=== PATIENT | male | born 1935 | race Caucasian/White ===

== ENCOUNTER 2022-02-14 13:28 | Inpatient (IN) | payer OTHER, MEDICARE, BC ==
[~2022-02-14] VITALS: Ht 177.8 cm; Wt 88.4 kg
[~2022-02-14 13:28] MED LIST: ALFUZOSIN HCL10 MG PO; ATENOLOL50 MG PO; FELODIPINE ER10 MG PO; LEVOTHYROXINE88 MCG PO; LOSARTAN-HCTZ1 EACH PO; METFORMIN HCL500 MG PO; SALSALATE750 MG PO; WARFARIN SODIUM5 MG PO; WELCHOL625 MG PO
[2022-02-14] MEDS ORDERED: ELIQUIS5 MG PO (13:59)
[2022-02-14] MEDS ORDERED: NITROGLYCERIN0.4 MG SL (14:00)
[2022-02-14] MEDS ORDERED: CARVEDILOL25 MG PO (14:00)
[2022-02-14] MEDS ORDERED: PRAVASTATIN SOD40 MG PO (14:01)
[2022-02-14] MEDS ORDERED: SPIRONOLACTONE25 MG PO (14:01)
[2022-02-14] MEDS ORDERED: OMEPRAZOLE20 MG PO (14:02)
[2022-02-14] MEDS ORDERED: LOW DOSE ASPIRI81 MG PO (14:04)
--- NOTE | 2022-02-14 19:16 | NUR ---
New admit to the medical floor from ED dept. Patient arrived alert and oriented x4. Patient reports mild sob at rest. Patient is on 4L oxygen per nc, sp02 is 94% at this time, respirations 26/min. Patient tolerated dinner well. at bedside with patient. Tele intact per provider order. Report provided to LUDMILA Hdz.
--- NOTE | 2022-02-14 19:30 | NUR ---
REPORT TAKEN ON PT. IS AT BEDSIDE. PT IS PLEASANT AND COOPERATIVE. CALL LIGHT IS AT BEDSIDE. NOO CURRENT NEEDS.
--- NOTE | 2022-02-14 20:14 | EKG ---
[facility] [address] [facility] [place], [place] [address] Signed Ventricular-paced rhythm Abnormal ECG No previous ECGs available Confirmed by LIT THOMAS MD ([id number]) on 02/14/2022 8:14:19 PM Electronically Signed By: LIT THOMAS MD 02/14/222013 PATIENT NAME: SWAPNA FOFANA Electrocardiogram DATE OF : 37 PHYSICIAN: LIT THOMAS MD REPORT #: [id number] REPORT IS CONFIDENTIAL AND NOT TO BE RELEASED WITHOUT AUTHORIZATION
--- NOTE | 2022-02-14 22:03 | NUR ---
PPT IS CONFUSED TO PLACE, TIME, SITUATION. HE HAS REMOVED HIS TELE LEADS AND GOWN AND IS ATTEMPTING TO GET UT OF BED. REORIENTED PT . CALL LIGHT IN REACH. BEDALARM IS ON.
--- NOTE | 2022-02-14 22:30 | NUR ---
IN TO CHECK TELE LEAD
--- NOTE | 2022-02-15 00:15 | NUR ---
ASSISTED PT WITH URINAL A COUPLE OF TIMES AFTER BED ALARM BEING SET OFF, BED ALARM RESUMED EACH TIME
--- NOTE | 2022-02-15 01:30 | NUR ---
2AM VS DONE, PT RESTING WITH BED ALARM SET
--- NOTE | 2022-02-15 04:15 | NUR ---
BED ALARM SET OFF, PT UP TO VOID, BACK TO BED, VSS, NO FURTHER NEEDS AT THIS TIME, BED ALARM RESUMED
--- NOTE | 2022-02-15 05:39 | NUR ---
bed alarm going off, PT up sba to void via urinal. PT back to bed, and bed alarm resumed. call light in reach and warm blanket provided.
--- NOTE | 2022-02-15 07:34 | NUR ---
Patient in bed resting, eyes closed, respirations non labored. Patient remains on 4L oxygen per nc. Patient has no distress. Personal supplies and call light within reach.
[2022-02-15] MEDS ORDERED: LOSARTAN POTAS100 MG PO (09:41)
--- NOTE | 2022-02-15 09:58 | NUR ---
Patient titrated from 4L oxygen to 1L at this time, sp02 94% at this time. Will continue to monitor sp02. Patient has no notable distress at this time. Personal supplies and call light within reach.
[2022-02-15] MEDS ORDERED: TYLENOL325 MG PO (10:49)
--- NOTE | 2022-02-15 11:09 | NUR ---
PT ALERT, ORIENTED AND SITTING UP IN BED WITH TV ON. PT EXPRESSIVE RREGARDING HOW HE FEELS. HAD PLEASANT VISIT, GAVE BLESSING. WILL FOLLOW
--- NOTE | 2022-02-15 11:41 | NUR ---
DR. THOMAS AT THE BEDSIDE SPEAKING WITH PATIENT. DISCUSSED THAT PATIENT AND MD FEEL THAT DISCHARGE TO [facility] WOULD BE A GOOD OPTION. PATIENT STATES HE WOULD LIKE TO DISCUSS IT WITH HIS SON THIS EVENING. WILL CHECK BACK WITH PATIENT TO DETERMINE DISCHARGE PLAN.
--- NOTE | 2022-02-15 14:24 | NUR ---
Patient sitting up in chair visiting with , no distress. Patient denies pain at this time. Pt remains on 1L oxygen per nc, respirations non labored. Patient reports mild shortness of breath at rest. IV site patent. No needs, personal supplies and call light within reach.
--- NOTE | 2022-02-15 19:30 | NUR ---
REPORT TAKEN ON PT. HE IS UP IN HIS CHAIR WATCHING TV. CALL LIGHT IN REACH. CHAIR ALARM IS ON.
--- NOTE | 2022-02-15 20:53 | NUR ---
ASSISTED PT. WITH URINAL. WARM BLANKET PROVIDED. ROOM TIDIED. CALL LIGHT LEFT WITHIN REACH. CHAIR ALARM SET. NO OTHER IMMEDIATE NEEDS AT THIS TIME.
--- NOTE | 2022-02-15 22:21 | NUR ---
PT. CHAIR ALARM SOUNDED. ASSISTED PT. FROM CHAIR TO BED. FRESH ICE WATER PROVIDED. BED ALARM SET. CALL LIGHT LEFT WITHIN REACH. NO OTHER IMMEDIATE NEEDS AT THIS TIME.
--- NOTE | 2022-02-15 23:57 | NUR ---
PT SET OFF BED ALARM GETTING UP TO GO TO THE BATHROOM. ASSISTED PT TO USE URINAL AT BEDSIDE. BACK TO BED. BED ALARM ON.CALL LLIGHT IN REACH.
--- NOTE | 2022-02-16 00:19 | NUR ---
PT HAS BEEN AWAKE AND TRYING TO GET OUT OF BED TO GET DRESED FOR THE DAY. PT IS REORIENTED TO PLACE AND TIME , ENCOURAGED TO GO TO SLEEP. TV TURNED OFF. BED ALARM ON, CALL LIGHT IN REACH.
--- NOTE | 2022-02-16 01:42 | NUR ---
PT SET OFF BED ALARM GETTING OUT OF BED TO VOID WITHOUT CALING. HE WAS ASSISTED TO STAND AT BEDSIDE TO USE URINAL. ASSISTED BACK TO BED. BED ALARM ON, CALL LIGHT IN REACH.
--- NOTE | 2022-02-16 02:08 | NUR ---
PT DISORIENTED TO PLACE, TIME AND SITUATION. REORIENTED AND ASSISTED BACK TO BED.
--- NOTE | 2022-02-16 06:48 | NUR ---
PT SET OFF BED ALARM GETTING OUT OF BED TO VOID. HE WAS ASSISTED WITH HIS URINAL . HE THEN WENT BACK TO BED WITH A WARMED BLANKETFOR COMFORT. CALL LIGHT IN REACH. BED ALARM ON.
--- NOTE | 2022-02-16 06:49 | NUR ---
PT SLEPT OFF AND ON. HE WAS DISORIENTED TO PLACE TIME AND SITUATION. BED ALARM WAS ON, PT DID NOT REMEMBER TO USE HIS CALLL LIGHT AND SET OFF THE BED ALARM MULTIPLE TIMES. PT IS REQUIRING OXYGEN AT 2 L PER NC TO MAINTAIN SATS. VSS, AFFEBRILE.
--- NOTE | 2022-02-16 07:50 | NUR ---
Bedside report received from CLAYTON RN. Pt is awake, sitting in a recliner, ready for breakfast. NO concerns voiced at this time.
--- NOTE | 2022-02-16 09:11 | NUR ---
Pt is napping in the recliner. Both feet elevated. O2 at 2 L. No signs of distress.
--- NOTE | 2022-02-16 13:00 | NUR ---
Dr Mitchell ordered PT/OT to evaluate Pt. Pt is chronically deconditioned, so as long as he can move around at his baseline he'd be able to discharge home. PT/OT eval pending. Pt had one loose BM.
--- NOTE | 2022-02-16 13:50 | NUR ---
Pt's came by. She was concerned about Marlon needing O2 at home. They are about to move to [place] by car. He'd need oxygen concentrator, not a regular O2 tank. Above was relayed to Dr Mitchell. Plan is to wait till Friday so it can be all arrranged.
--- NOTE | 2022-02-16 15:51 | NUR ---
PT in to evaluate the Pt.
--- NOTE | 2022-02-16 17:30 | NUR ---
Pt ate 50% of his dinner. He is resting in the recliner, watching TV. He still feels tired and wiped out.
--- NOTE | 2022-02-16 19:27 | NUR ---
SHIFT REPORT FROM INGRIS FERNÁNDEZ RN, PT HAD GOOD DAY CAN BE FORGETFUL, BED ALARM FOR SAFETY, ONE PERSON ASSIST, HAD BM TODAY. WILL NEED CASE MANAGEMENT ON FRIDAY FOR OXYGEN ORDERS AND PLAN FOR TRAVEL [place]CROSS COUNTRY. NO NEW CONCERNS OVER DAYSHIFT.
--- NOTE | 2022-02-16 20:08 | NUR ---
PT SITTING UP IN RECLINER ALERT, PT'S SPOUSE SITTING ON COUCH NO COMPLAINTS, OR CONCERNS AT THIS TIME
--- NOTE | 2022-02-16 21:45 | NUR ---
PT ASSISTED TO TRANSFER TO BED STANDBY ASSIST WITH CANE, PT TOLERATED WELL STEADY GAIT. BED ALARM ON FOR PT SAFETY. PT HAS NO REQUESTS OR CONCERNS AT THIS TIME
--- NOTE | 2022-02-17 00:05 | NUR ---
PT RESTING QUIETLY IN BED EYES CLOSED RR 19 BPM, NO DISTRESS NOTED, N.C IN PLACE, CALL LIGHT IN REACH, BED ALARM ON FOR PT SAFETY.
--- NOTE | 2022-02-17 03:53 | NUR ---
PT UP TO BEDSIDE TO VOID IN URINAL, NO OTHER CONCERNS, BACK TO BED, CALL LIGHT IN REACH, BED ALARM ON FOR PT SAFETY.
--- NOTE | 2022-02-17 04:01 | NUR ---
PT HAS SLEPT WELL OVER SHIFT, BED ALARM ON FOR PT SAFETY, HE HAS SET OFF TWICE WHEN ATTEMPTING TO GET OUT OF BED TO VOID, STANDBY ASSIST TO BEDSIDE TO COID IN URINAL, HE IS FORGETFUL, EASILY REORIENTED. NO NEW CONCERNS THIS SHIFT. URINE OUT IS Q.S. PLUS. COOPERATIVE WITH CARE PLAN
--- NOTE | 2022-02-17 06:04 | NUR ---
PT UP TO BEDSIDE TO VOID IN URINAL WITH ASSISTANCE FROM COMPRESSION MOLDING MACHINE OPERATOR ERICA.
--- NOTE | 2022-02-17 07:14 | NUR ---
Bedside report received from CLAYTON RN. Pt is sleeping on his R side. O2 at 2L. Pt had one episode at night when he pulled O2 off in his sleep. pOx was 76% on RA at that time.
--- NOTE | 2022-02-17 08:44 | NUR ---
PATIENT UP TO CHAIR WITH SBA AND CANE. CHAIR ALARM IS ON. URINAL PROVIDED, CALL LIGHT WITHIN REACH.
--- NOTE | 2022-02-17 10:01 | NUR ---
Pt is working with PT. He is walking in the hallways with hemiwalker and O2.
--- NOTE | 2022-02-17 11:44 | NUR ---
Pt is sitting in the recliner. 3L of O2 via NC. Call light and water withing reach.
--- NOTE | 2022-02-17 14:05 | NUR ---
Pt is sitting up in the recliner. He was upset he was just sitting there and 'doing nothing". Pt was offered a walk in the hallways or watching TV. He declined both. He said he was feeling dizzy. Fresh water was provided. O2 at 2 L. Call light within reach. Chair alarm on.
--- NOTE | 2022-02-17 15:58 | NUR ---
Rocephin administered. Pt is sitting in the recliner. No concerns/request at this time. Feels less dizzy. Water and call light handy.
--- NOTE | 2022-02-17 19:15 | NUR ---
REPORT RECEIVED FROM OFFGOING RNINGRIS. PT SITTING UP IN CHAIR WITH AT BEDSIDE. CALL LIGHT IN REACH. CHAIR ALARM ACTIVE.
--- NOTE | 2022-02-17 19:57 | NUR ---
PT ASSESSMENT COMPLETE. PT UP TO BATHROOM WITH 1 PA AND CANE. TOLERATED WELL. PT UP TO CHAIR, VISITING WITH . CHAIR ALARM IN PLACE. SAO2 80% ON 2 LPM AFTER RETURNING FROM BATHROOM. O2 INCREASED TO 3LPM. SAO2 INCREASED TO 90%. LUNGS WITH CRACKLES TO BILATERAL LOWER LOBES. COARSE TO BILATERAL UPPER LOBES. NO COUGH NOTED DURING ASSESSMENT. PT FORGETFUL, DISORIENTED TO DATE AND TIME. 1+ EDEMA TO LLE. CHRONIC PER PTS . IV FLUSEHD WITH 10ML NS. WNL. SL. PT DENIES FURTHER NEEDS AT THIS TIME. CALL LIGHT IN REACH.
--- NOTE | 2022-02-17 22:30 | NUR ---
CHAIR ALARMING. SBA. PATIENT USED THE BATHROOM. VOIDED UNMEASURED. PATIENT IS LAYING IN BED NOW. WARM BLANKET PROVIDED. BED ALARM ON FOR SAFETY. DENIES ANY NEEDS AT THIS TIME.
--- NOTE | 2022-02-17 22:45 | NUR ---
PT ROUNDING. PT RESTING IN BED WITH LIGHT ON. WATCHING TV. TURNED LIGHTS OUT FOR PT. EYE GLASSES PLACED ON BEDSIDE TABLE. PT DENIES FURTHER NEEDS. CALL LIGHT IN REACH. BED ALARM ACTIVE.
--- NOTE | 2022-02-18 01:59 | NUR ---
PT ASSESSMENT COMPLETE. DURING PT ROUNDING, PT FOUND SITTING UP IN BED. STATES THAT HE HAS WET THE BED, HOWEVER BED AND UNDERWEAR ARE DRY. PT NOTED TO HAVE O2 OFF AT THIS TIME. SPOT CHECK SAO2 84%. O2 REPLACED AT 2 LPM, SAO2 INCREASES TO 91%. PT UP TO BATHROOM AND BACK TO BED WITH 1 PA AND CANE. LUNG SOUNDS WITH CRACKLES TO BILATERAL BASES. NO COUGH NOTED DURING ASSESSMENT. PT DENIES FURTHER NEEDS AT THIS TIME. CALL LIGHT IN REACH.
--- NOTE | 2022-02-18 03:02 | NUR ---
RECEIVING INSPECTOR TO ROOM FOR BED ALARM SOUNDING. PT STATES HE NEEDS TO SIT UP. O2 IN PLACE APPROPRIATELY @ 2LPM. NO ACCESSORY MUSCLE USE NOTED. NO INCREASE IN RR. SPOT SAO2 CHECK 78%, O2 INCREASED TO 3 LPM, SAO2 DECREASES TO 73%. O2 INCREASED TO 4 LPM, SAO2 INCREASED TO 91%. BEDSIDE CPOX PLACED ON PT. PT STATES HE FEELS BETTER. RESTING BACK IN BED WITH HOB ELEVATED AND PILLOW BEHIND BACK. BED ALARM ACTIVE. CALL LIGHT IN REACH. ROOM IN VIEW OF RN STATION WITH CURTAIN OPEN.
--- NOTE | 2022-02-18 05:06 | NUR ---
PT UP TO BEDSIDE TO USE URINAL WITH 1 PA AND BACK TO BED. PT TOLERATED WELL. PT DESATS TO 84% ON 4 LPM WHILE UP, RECOVERED TO 91% ONCE BACK INTO BED. PT DENIES FURTHER NEEDS. CALL LIGHT IN REACH. BED ALARM ACTIVE. ROOM IN VIEW OF RN STATION WITH CURTAIN OPEN.
--- NOTE | 2022-02-18 06:50 | NUR ---
PATIENT GOT UP TO USE THE BATHROOM. SBA. USING CANE. PATIENT VOIDED 500ML. PATIENT IS BACK IN BED. COFFEE PROVIDED. BED ALARM ON FOR SAFETY.
--- NOTE | 2022-02-18 07:05 | NUR ---
BEDSIDE HANDOFF REPORT RECEIVED FROM NURSING SCHEDULER RN. PT RESTING IN BED. ON 3L NC. PT DENIES NEEDS AT THIS TIME.
--- NOTE | 2022-02-18 08:38 | NUR ---
PT SITTING IN CHAIR. PT PLEASANTLY CONFUSED, ORIENTED TO SELF ONLY. PT ON 3L NC, LUNG SOUNDS COARSE WITH FINE CRACKLES IN LOWER LOBES. PT DENIES PAIN. IV SLAINE LOCKED, FLUSHED AND PATENT. BOWEL TONES ACTIVE, DENIES NAUSEA, AWAITING BREAKFAST. CMS INTACT, WITHOUT EDEMA. MORNING MEDICATIONS ADMINISTERED PER EMAR. PT DENIES OTHER NEEDS AT THIS TIME. CHAIR ALARM IN PLACE.
--- NOTE | 2022-02-18 10:01 | NUR ---
PATIENT SITTING UP IN CHAIR WATCHING TV. VITALS AND I&O'S CHARTED. LINENS CHANGED. CALL LIGHT IN REACH. NO FURTHER NEEDS AT THIS TIME. CHAIR ALARM ON.
--- NOTE | 2022-02-18 12:48 | NUR ---
PT ALERT, SITTING IN CHAIR. PT PLEASANT, SOMEWHAT CONFUSED. HAD GOOD VISIT. PT USING O2 NC. THANKED ME FOR VISIT. GAVE BLESSING, WILL FOLLOW
[2022-02-18] MEDS ORDERED: CEFPODOXIME PR200 MG PO (13:22)
[2022-02-18] MEDS ORDERED: LOSARTAN POTAS100 MG PO (13:23)
[2022-02-18] MEDS ORDERED: METFORMIN HCL1000 MG PO (13:24)
--- NOTE | 2022-02-18 13:25 | NUR ---
PATIENT IN CHAIR WATCHING TV AT THIS TIME. VITALS AND I&O'S CHARTED. CALL LIGHT IN REACH. NO FURTHER NEEDS AT THIS TIME.
--- NOTE | 2022-02-18 14:25 | NUR ---
RECVD CALL FROM JOHN AT [facility] TO PROVIDE PATIENT WITH A PORTABLE TANK AND DISCHARGE. PER JOHN THE DRILVER WILL MAKE CONTACT WITH THE PATIENT AND HIS TO DELIVER THE REST OF THE SUPPLIES TO THEIR HOME. CARLOS A KEYS NOTIFIED.
== END 2022-02-18 15:40 | disposition home or self-care (01) | DRG 177 ==
LOC: ED 13:28 → MS 16:59
PROVIDERS: ADMIT Internal Medicine; ATTEND Internal Medicine
DX: J15.6 Pneumonia due to other Gram-negative bacteria (principal); J96.01 Acute respiratory failure with hypoxia; I48.92 Unspecified atrial flutter; E87.1 Hypo-osmolality and hyponatremia; Z20.822 Contact with and (suspected) exposure to COVID-19; I48.91 Unspecified atrial fibrillation; I10 Essential (primary) hypertension; E11.9 Type 2 diabetes mellitus without complications; N40.0 Benign prostatic hyperplasia without lower urinary tract symptoms; I25.10 Atherosclerotic heart disease of native coronary artery without angina pectoris; K21.9 Gastro-esophageal reflux disease without esophagitis; E03.9 Hypothyroidism, unspecified; E78.5 Hyperlipidemia, unspecified; F03.90 Unspecified dementia, unspecified severity, without behavioral disturbance, psychotic disturbance, mood disturbance, and anxiety; Z95.1 Presence of aortocoronary bypass graft; Z95.5 Presence of coronary angioplasty implant and graft; Z95.0 Presence of cardiac pacemaker; Z79.01 Long term (current) use of anticoagulants; Z79.82 Long term (current) use of aspirin; Z79.84 Long term (current) use of oral hypoglycemic drugs; Z79.899 Other long term (current) drug therapy
CPT/HCPCS: 36415; 71045; 80048; 80053; 83036; 83605; 83880; 84484; 85025; 87040; 87502; 93005; 93010; 94667; 94668; 94760; 94761; 96374; 96375; 97116; 97161; 99285-25; C9803; J0456; J0696; J1815; J3480; J7060; U0003